=== PATIENT | male | born 1965 | race Caucasian/White ===

== ENCOUNTER 2022-03-24 01:13 | Emergency (ER) | payer OTHER ==
[~2022-03-24] VITALS: Ht 170.2 cm; Wt 89.8 kg
[~2022-03-24 01:13] MED LIST: ATACAND32 MG; ATENOLOL50 MG
[2022-03-24] MEDS ORDERED: CRESTOR20 MG PO (01:26)
[2022-03-24] MEDS ORDERED: HYDROCHLOROTHIA25 MG PO (01:27)
[2022-03-24] MEDS ORDERED: ESCITALOPRAM OX20 MG PO (01:27)
[2022-03-24] MEDS ORDERED: KETO10TA2 PO (04:30)
[2022-03-24] MEDS ORDERED: CEPHALEXIN500 MG PO (04:30)
== END 2022-03-24 04:37 ==
LOC: ER 01:13
DX: S00.81XA Abrasion of other part of head, initial encounter (principal); S40.011A Contusion of right shoulder, initial encounter; W06.XXXA Fall from bed, initial encounter; Y93.84 Activity, sleeping; Y92.013 Bedroom of single-family (private) house as the place of occurrence of the external cause; Y99.9 Unspecified external cause status

== ENCOUNTER 2024-02-12 07:28 | Emergency (ER) | payer OTHER ==
[~2024-02-12] VITALS: Ht 152.4 cm; Wt 84.4 kg
[~2024-02-12 07:28] MED LIST changes: +CEPHALEXIN500 MG PO; +CRESTOR20 MG PO; +ESCITALOPRAM OX20 MG PO; +HYDROCHLOROTHIA25 MG PO; +KETO10TA2 PO
[2024-02-12 08:41] LABS: HEMATOCRIT 47.5 % (39.0-48.0); HEMOGLOBIN 16.8 g/dL (13-16.00); MEAN CELL VOLUME 93.2 fL (80.0-100.00); MEAN CORPUSCULAR HEMOGLOBIN 32.9 pg (27.00-32.0); MEAN CORPUSCULAR HGB CONC 35.3 g/dl (32.0-36.0); PLATELET COUNT 178 K/uL (150-450); RED CELL DISTRIBUTION WIDTH 13.5 % (11.5-14.5)
[2024-02-12 09:04] LABS: URINE APPEARANCE Clear; URINE BILIRRUBIN Negative (NEGATIVE); URINE BLOOD Negative; URINE COLOR Yellow; URINE GLUCOSE Negative (NEGATIVE); URINE LEUKOCYTE Negative; URINE NITRATE Negative; URINE PROTEIN Negative (NEGATIVE)
[2024-02-12 09:07] LABS: URINE WBC 1.8 uL (0.0-23.2)
[2024-02-12 09:13] LABS: ALBUMIN 3.8 gm/dL (3.4-5.0); BILIRUBIN TOTAL 0.78 mg/dL (0.3-1.2); CALCIUM 9.6 mg/dL (8.5-10.1); CREATININE SERUM 0.87 mg/dL (0.70-1.30); GFR 89.81; GLOBULINA 3.4 G/DL (2.4-3.5); POTASSIUM 4.13 mEq/L (3.5-5.1); PROSTATIC SPECIFIC ANTIGEN 0.687 NG/ML (0.010-4.00); TOTAL PROTEIN 7.2 gm/dL (6.4-8.2)
[2024-02-12 10:06] LABS: URINE BACTERIA 2.5 uL (0.0-1933); URINE EPITHELIAL CELLS 0.6 uL (0.0-38.8)
[2024-02-12] MEDS ORDERED: BACTRIM DS TAB1 EACH PO (10:21)
[2024-02-12] MEDS ORDERED: DICLOFENAC SODI75 MG PO (10:21)
== END 2024-02-12 10:37 | disposition home or self-care (01) ==
LOC: ER 07:29
PROVIDERS: General Practice
DX: N50.811 Right testicular pain (principal); Z91.013 Allergy to seafood; I10 Essential (primary) hypertension; E11.9 Type 2 diabetes mellitus without complications

== ENCOUNTER 2024-02-13 18:42 | Outpatient (CLI) | payer OTHER ==
[~2024-02-13 18:42] MED LIST changes: +BACTRIM DS TAB1 EACH PO; +DICLOFENAC SODI75 MG PO
== END 2024-02-13 23:00 | disposition home or self-care (01) ==
LOC: LAB 18:42
PROVIDERS: ATTEND Urology
DX: K61.2 Anorectal abscess (principal)